=== PATIENT | female | born 1990 | race African-American/Black ===

== ENCOUNTER 2018-01-31 17:41 | Emergency (ER) | payer OTHER ==
[~2018-01-31] VITALS: Ht 162.6 cm; Wt 90.7 kg
[2018-01-31] MEDS ORDERED: IBUPROFEN 600600 M1 PO (19:02)
[2018-01-31 19:36] VITALS: BP 137/80
== END 2018-01-31 20:01 | disposition home or self-care (01) ==
LOC: ER 17:41
DX: S93.402A Sprain of unspecified ligament of left ankle, initial encounter (principal); X50.1XXA Overexertion from prolonged static or awkward postures, initial encounter; Y93.89 Activity, other specified; Y92.89 Other specified places as the place of occurrence of the external cause; Y99.8 Other external cause status